=== PATIENT | male | born 1965 | race Caucasian/White ===

== ENCOUNTER → 2016-11-30 | Outpatient (CLI) | payer OTHER ==
[2016-11-30 15:03] LABS: HEMATOCRIT 47.3 % (38.0-50.0)
== END | disposition home or self-care (01) ==
LOC: CSSDAY 13:00
PROVIDERS: Specialist
DX: E83.111 Hemochromatosis due to repeated red blood cell transfusions (principal)
CPT/HCPCS: 85014; 85018; 99195; G0463

== ENCOUNTER → 2016-12-08 | Outpatient (CLI) | payer OTHER ==
[2016-12-08 15:07] LABS: HEMATOCRIT 42.4 % (38.0-50.0); HEMOGLOBIN 14.6 gm/dL (13.0-16.0)
== END | disposition home or self-care (01) ==
LOC: CSSDAY 12-07 07:15
PROVIDERS: Specialist
DX: E83.111 Hemochromatosis due to repeated red blood cell transfusions (principal)
CPT/HCPCS: 36415; 85014; 85018; 99195; G0463